=== PATIENT | female | born 1940 | race Asian ===

== ENCOUNTER 2021-09-13 01:36 | Emergency (ER) | payer OTHER, SELFPAY ==
[~2021-09-13] VITALS: Ht 149.9 cm; Wt 50.8 kg
[2021-09-13 01:36] VITALS: BP_SYST 198
[2021-09-13 01:59] LABS: BASOPHILS % (AUTO) 0.2 % (0.0-2.0); HEMATOCRIT 41.6 % (36-48); HEMOGLOBIN 13.6 g/dL (12.0-16.0); LYMPHOCYTES # (AUTO) 1.2 K/uL (1.0-5.5); LYMPHOCYTES % (AUTO) 6.3 % (20.5-51.5); MEAN CORPUSCULAR HEMOGLOBIN 29 pg (27-31); MEAN CORPUSCULAR HGB CONC 33 % (32-36); MEAN CORPUSCULAR VOLUME 89 fL (79.0-98.0); MONOCYTES # (AUTO) 1.2 K/uL (0.0-1.0); MONOCYTES % (AUTO) 6.3 % (1.7-9.3); NEUTROPHILS # (AUTO) 16.4 K/uL (1.8-7.7); NEUTROPHILS % (AUTO) 87.2 % (40.0-70.0); PLATELET COUNT (AUTO) 326 K/uL (130-430); RED CELL DISTRIBUTION WIDTH 13.5 % (9.0-15.0); WHITE BLOOD COUNT (AUTO) 18.8 K/uL (4.8-10.8)
[2021-09-13] MEDS ORDERED: NACL 0.9% 1,000 ML IV ONE (02:30)
[2021-09-13] MEDS ORDERED: levETIRAcetam 500 MG in NS 100 ML IV ONE (02:30)
[2021-09-13 02:37] LABS: BILIRUBIN,URINE NEGATIVE (NEGATIVE); BLOOD, URINE 3+ (NEGATIVE); CLARITY/URINE CLEAR (CLEAR); COLOR,URINE YELLOW (YELLOW); GLUCOSE,URINE TRACE (NEGATIVE); KETONES,URINE NEGATIVE (NEGATIVE); LEUKOCYTE ESTERASE ,URINE NEGATIVE (NEGATIVE); NITRITE, URINE NEGATIVE (NEGATIVE); PROTEIN URINE 3+ (NEGATIVE); UROBILINOGEN,URINE 0.2 (0.2-1.0)
[2021-09-13 02:51] LABS: PROTHROMBIN TIME 9.7 SECS (9.5-12.5)
[2021-09-13 02:54] LABS: ALANINE AMINOTRANSFERASE 30 U/L (12-78); ALBUMIN 3.1 g/dL (3.4-4.8); ASPARTATE AMINOTRANSFERASE 45 U/L (10-37); CALCIUM 10.1 mg/dL (8.4-11.0); CREATININE 2.01 mg/dL (0.55-1.30); GLUCOSE 286 mg/dL (70-99); TOTAL BILIRUBIN 1.4 mg/dL (0.0-1.0); UREA NITROGEN, BLOOD 37 mg/dL (8-21)
[2021-09-13 03:04] LABS: ANION GAP 38 (5-15)
[2021-09-13 03:14] LABS: URINE SULFO SALICYLIC ACID NEGATIVE (NEGATIVE)
[2021-09-13 03:17] LABS: SODIUM SERUM 194 mmol/L (136-145)
[2021-09-13 03:18] LABS: POTASSIUM 35.8 mmol/L (3.5-5.1)
[2021-09-13 03:22] LABS: CHLORIDE 135 mmol/L (98-107)
[2021-09-13] MEDS ORDERED: LABETALOL 100 MG/ 20ML VIAL IVP ONE ×2 (03:45→05:00)
[2021-09-13] MEDS ORDERED: cefTRIAXone 1 GM in D5W 50 ML IV ONE (03:45)
[2021-09-13 04:33] LABS: CALCIUM 9.2 mg/dL (8.4-11.0); CREATININE 1.67 mg/dL (0.55-1.30); GLUCOSE 223 mg/dL (70-99); UREA NITROGEN, BLOOD 40 mg/dL (8-21)
[2021-09-13 04:45] LABS: ANION GAP 15 (5-15); CHLORIDE 106 mmol/L (98-107); SODIUM SERUM 142 mmol/L (136-145)
[2021-09-13 04:56] VITALS: BP_SYST 131
== END 2021-09-13 05:15 | disposition short-term general hospital (02) ==
LOC: SED 01:36
DX: I62.9 Nontraumatic intracranial hemorrhage, unspecified (principal); G81.94 Hemiplegia, unspecified affecting left nondominant side; R47.1 Dysarthria and anarthria; I21.4 Non-ST elevation (NSTEMI) myocardial infarction; I16.1 Hypertensive emergency; N18.9 Chronic kidney disease, unspecified; E11.65 Type 2 diabetes mellitus with hyperglycemia; I10 Essential (primary) hypertension; E11.9 Type 2 diabetes mellitus without complications; Z79.899 Other long term (current) drug therapy; Z20.822 Contact with and (suspected) exposure to COVID-19
CPT/HCPCS: 36415; 70450; 71045; 76376; 80048; 80053; 81003; 83605; 84484; 85025; 85610; 85730; 86886; 86900; 86901; 87040; 87186; 87426; 93005; 96374; 96375; 96376; 99291; J3490; 99285; J1953